=== PATIENT | male | born 1955 | race Caucasian/White ===

== ENCOUNTER → 2018-03-14 | Outpatient (CLI) | payer OTHER ==
[~2018-03-14] MED LIST: GLIPIZIDE 10 MG10 MG PO; GLUCOPHAGE500 MG PO; GLUCOSAMINE HC500 MG PO; HYDROCODON-ACE1 EAC7 PO; KEFLEX500 MG PO; LIPITOR 20 MG T20 M1 PO
== END ==
LOC: M.RAD 14:29
DX: M25.551 Pain in right hip (principal)

== ENCOUNTER → 2021-07-13 | Outpatient (CLI) | payer MEDICARE, OTHER ==
--- NOTE | 2021-07-13 13:17 | 2DMMODE ---
[place] [address] 2 D/M-MODE ECHOCARDIOGRAM Name: GRICEL VARGAS Room: [facility]#: [id number] Admission: 07/13/21 Attend Phys: RUBÉN Doss Discharge: Date of : 51 Date of Service: 07/13/21 1316 Report #: [id number] THIS REPORT FOR: cc: Arianna Schmid MD, Katrina MD Blick,Henrik Manjarrez MD [facility] ~ APPROVED REPORT Study performed: 07/13/2021 12:03:55 EXAM: Comprehensive 2D, Doppler, and color-flow Echocardiogram Patient Location: Out-Patient BSA: 1.81 HR: 70 bpm BP: 150/80 mmHg Other Information Study Quality: Good Indications Murmur 2D Dimensions IVSd: 13.44 (7-11mm) LVOT Diam: 20.99 (18-24mm) LVDd: 44.61 mm PWd: 10.90 (7-11mm) Ascending Ao: 31.10 (22-36mm) LVDs: 26.02 (25-40mm) Aortic Root: 26.71 mm Volumes Left Atrial Volume (Systole) LA ESV Index: 14.00 mL/m2 Aortic Valve AoV Peak Roberto.: 2.60 m/s AO Peak Gr.: 27.06 mmHg LVOT Max P.06 mmHg AO Mean Gr.: 14.99 mmHg LVOT Mean P.53 mmHg LVOT Max V: 0.87 m/s AO V2 VTI: 53.70 cm LVOT Mean V: 0.57 m/s LEONEL (VTI): 1.42 cm2 LVOT V1 VTI: 22.05 cm Mitral Valve E/A Ratio: 0.93 [place] [address] 2 D/M-MODE ECHOCARDIOGRAM Name: GRICEL VARGAS Room: [facility]#: [id number] Admission: 07/13/21 Attend Phys: RUBÉN Doss Discharge: Date of : 51 Date of Service: 07/13/21 1316 Report #: [id number] MV Decel. Time: 186.47 ms MV E Max Roberto.: 0.71 m/s MV PHT: 54.08 ms MVA (PHT): 4.07 cm2 TDI E/Lateral E': 5.92 E/Medial E': 6.45 Medial E' Roberto.: 0.11 m/s Lateral E' Roberto.: 0.12 m/s Pulmonary Valve PV Peak Roberto.: 0.94 m/s PV Peak Gr.: 3.51 mmHg Tricuspid Valve RAP Estimate: 5.00 mmHg TR Peak Gr.: 17.47 mmHg RVSP: 22.47 mmHg PA Pressure: 22.47 mmHg Left Ventricle The left ventricle is normal size. There is normal LV segmental wall motion. There is normal left ventricular wall thickness. Left ventricular systolic function is normal. The left ventricular ejection fraction is within the normal range. LVEF is 55-60%. Grade I - abnormal relaxation pattern. Right Ventricle The right ventricle is normal size. The right ventricular systolic function is normal. Atria The left atrium size is normal. The right atrium size is normal. Aortic Valve Aortic valve is calcified. Mild aortic regurgitation. Mild aortic stenosis. Mitral Valve The mitral valve is normal in structure. There is no mitral valve regurgitation noted. No evidence of mitral valve stenosis. Tricuspid Valve The tricuspid valve is normal in structure. There is trace tricuspid valve regurgitation noted[place] [address] 2 D/M-MODE ECHOCARDIOGRAM Name: GRICEL VARGAS Room: [facility]#: [id number] Admission: 07/13/21 Attend Phys: RUBÉN Doss Discharge: Date of : 51 Date of Service: 07/13/21 1316 Report #: [id number] The pulmonary valve is normal in structure. Mild pulmonic regurgitation. Great Vessels The aortic root is normal in size. IVC is normal in size and collapses >50% with inspiration. Pericardium There is no pericardial effusion. <Conclusion> LVEF is 55-60%. Mild aortic stenosis. Mild aortic regurgitation. <ELECTRONICALLY SIGNED> By: Henrik Pan MD, FACC 07/13/211315 15 15 Henrik Pan MD, FAC /INF
== END ==
LOC: M.CRD 10:48
DX: I08.8 Other rheumatic multiple valve diseases (principal); R01.1 Cardiac murmur, unspecified